=== PATIENT | male | born 1955 | race Caucasian/White ===

== ENCOUNTER 2022-06-09 14:41 | Emergency (ER) | payer MEDICARE, SELFPAY ==
--- NOTE | 2022-06-09 14:43 | ED.WOUNDLAC ---
HPI - Wound/Laceration General Chief Complaint: Skin/Abscess/Foreign Body Stated Complaint: Left Hand Finger Laceration Time Seen by Provider: 06/09/22 15:23 Source: patient and RN notes reviewed Mode of arrival: ambulatory Limitations: no limitations History of Present Illness HPI narrative: 67-year-old male presents laceration of the 2nd digit of the left hand. He reports just prior to arrival he cut the finger with a pocket knife. He reports he is not up-to-date on his tetanus shot. He denies decreased sensation, strength, range of motion of the finger. Related Data Home Medications Medication Instructions Recorded Confirmed amlodipine 10 mg tablet mg 06/09/22 atorvastatin 20 mg tablet mg 06/09/22 bupropion HCl 300 mg 24 hr tablet, mg PO 06/09/22 extended release carvedilol 3.125 mg tablet mg 06/09/22 citalopram 40 mg tablet mg 06/09/22 hydrochlorothiazide 25 mg tablet mg 06/09/22 ketoconazole 2 % shampoo topical 06/09/22 losartan 100 mg tablet mg 06/09/22 montelukast 10 mg tablet mg 06/09/22 pantoprazole 40 mg tablet,delayed mg PO 06/09/22 release Allergies Allergy/AdvReac Type Severity Reaction Status Date / Time atenolol Allergy Unknown Other Verified 06/09/22 15:07 Review of Systems Review of Systems: CONSTITUTIONAL: Denies malaise, chills, sweats, or fever. SKIN: Reports laceration to the 2nd digit of left hand MUSCULOSKELETAL: Denies muscle skeletal pain NEUROLOGIC: Denies numbness, weakness All systems reviewed & are unremarkable except as noted in HPI and below PMFSH Family History Family History (Updated 03/23/14 @ 07:13 by DOCTOR UNKNOWN) Sibling Hypertension Patient's brother is Mother Patient's mother is Father Patient's father is Other Family history of elevated blood lipids Social History Social History Smoking status: Never smoker Alcohol intake: current Comments At time of signature, agree with nursing past medical, surgical, social and family history. There is no relevant family history pertinent to the presenting complaint Exam Narrative: GENERAL: Well-appearing, well-nourished, and in no acute distress. HEAD: Normocephalic EYES: PERRLA, conjunctivae clear NECK: Supple. CHEST: Speaks in full sentences. No respiratory distress. HEART: Regular rate and rhythm. Normal and equal peripheral pulses. EXTREMITIES: 2nd digit of left hand has normal strength and sensation. 5/5 strength with digit flexion, extension. Range of motion normal. No clubbing, cyanosis, or edema noted. No tenderness. Normal digital cascade with flexion of fingers, median, ulnar and radial nerve intact. Normal sensation of each side of finger.No scissoring. Normal thumb opposition. Good capillary refill and radial pulse. Distal capillary refill less than 3 seconds. SKIN: Warn, dry, intact, pink. Approximately 2 cm curved superficial laceration of the lateral 2nd digit of the left hand between the PIP and the IP joints, approximated, not gaping NEURO: Alert and oriented x3. PSYCH: Normal mood and affect Course Course Emergency Course: Patient is aware of diagnosis, understands and agrees to treatment plan. Anticipatory guidance given. Patient agrees to follow-up as directed and is aware of reasons to seek care at the emergency department. Portions of this record may have been created with voice recognition software Level of Care: Express Care Visit Vital Signs Vital signs: Reviewed. Procedures Laceration Laceration 1: Date: 06/09/22 Time: 15:34 Site: hand Size (cm): 2 Description: irregular Depth: simple, single layer Pre-repair: wound explored and irrigated ====== Skin Level ====== Skin layer closed with: dermabond ====== Subcutaneous Layer ====== ====== Muscle Layer ====== ====== Tendon Layer ====== MDM - Wound/Laceration [facility]
[2022-06-09 14:57] VITALS: BP 166/80; PULSE 65; RESP 16; TEMP 36.7; O2SAT 98
[2022-06-09] MEDS: TETANUS,DIPHTHERIA,AC PERTUSSIS ADULT (0.5 ML) BOOSTRIX IM (15:46)
== END 2022-06-09 15:57 | disposition home or self-care (01) ==
PROVIDERS: Emergency Provider Nurse Practitioner; PCP Family Medicine
DX: S61.211A Laceration without foreign body of left index finger without damage to nail, initial encounter (principal); W26.0XXA Contact with knife, initial encounter; Z23 Encounter for immunization; R01.1 Cardiac murmur, unspecified; E78.00 Pure hypercholesterolemia, unspecified; I10 Essential (primary) hypertension; J44.9 Chronic obstructive pulmonary disease, unspecified; F41.9 Anxiety disorder, unspecified; F32.A Depression, unspecified; Z86.14 Personal history of Methicillin resistant Staphylococcus aureus infection; Z96.653 Presence of artificial knee joint, bilateral; Z86.16 Personal history of COVID-19
CPT/HCPCS: 12001; 90471; 90715; 99202; G0463